=== PATIENT | female | born 1980 | race Caucasian/White ===

== ENCOUNTER → 2017-05-03 | Outpatient (CLI) | payer BC ==
[~2017-05-03] MED LIST: GABA300C16 PO; HYDR-3498 PO; OXYC-284 PO
[2017-05-03 19:09] LABS: COMPLEMENT C3 94 mg/dl (88-165); IMMUNOGLOBULIN A 366 mg/dl (70-400); IMMUNOGLOBULIN G 1141 mg/dl (700-1600); IMMUNOGLOBULIN M 163 mg/dl (40-230)
[2017-05-03 19:48] LABS: HEPATITIS B CORE ANTIBODY NEGATIVE (NEGATIVE)
[2017-05-03 20:47] LABS: COMPLEMENT C4 22 mg/dl (14-44)
== END | disposition home or self-care (01) ==
LOC: LAB 13:41
PROVIDERS: ATTEND Internal Medicine Rheumatology
DX: R76.0 Raised antibody titer (principal); M79.1 Myalgia; M05.40 Rheumatoid myopathy with rheumatoid arthritis of unspecified site
CPT/HCPCS: 82784; 84155; 84165; 85613; 86147; 86160; 86255; 86320; 86704; 86803; 87340

== ENCOUNTER 2019-04-24 15:20 | Emergency (ER) | payer BC ==
[~2019-04-24] VITALS: Wt 80.0 kg
[~2019-04-24 15:20] MED LIST changes: +IBUP-1542 PO
[2019-04-24 15:22] VITALS: BP 160/87; PULSE 90; RESP 18; Wt 80.0 kg
[2019-04-24] MEDS ORDERED: IBUPROFEN 600 MG TAB PO ONE (16:30)
== END 2019-04-24 17:06 | disposition home or self-care (01) ==
LOC: FTE 15:20
DX: S80.211A Abrasion, right knee, initial encounter (principal); W01.0XXA Fall on same level from slipping, tripping and stumbling without subsequent striking against object, initial encounter; Y92.9 Unspecified place or not applicable
CPT/HCPCS: 73562